=== PATIENT | male | born 1995 | race African-American/Black ===

== ENCOUNTER 2017-02-03 22:27 | Emergency (ER) | payer OTHER ==
[~2017-02-03] VITALS: Ht 190.5 cm; Wt 107.1 kg
[2017-02-04] MEDS ORDERED: MOTRIN600 MG PO (01:07)
[2017-02-04 01:36] VITALS: BP 135/87
== END 2017-02-04 01:38 ==
LOC: EME 22:27
PROC: 0RSJXZZ Reposition Right Shoulder Joint, External Approach (ICD-10-PCS; principal; 2017-02-03)
DX: S43.014A Anterior dislocation of right humerus, initial encounter (principal); W22.8XXA Striking against or struck by other objects, initial encounter; Y92.149 Unspecified place in prison as the place of occurrence of the external cause
CPT/HCPCS: 73030; 99281; 99285; J2250; J2270; J7030

== ENCOUNTER 2017-08-04 17:21 | Emergency (ER) | payer OTHER ==
[~2017-08-04] VITALS: Ht 190.5 cm; Wt 102.3 kg
[~2017-08-04 17:21] MED LIST: MOTRIN600 MG PO
[2017-08-04 20:17] VITALS: BP 141/85
== END 2017-08-04 20:19 ==
LOC: EME 17:21
PROC: 0RSJXZZ Reposition Right Shoulder Joint, External Approach (ICD-10-PCS; principal; 2017-08-04)
DX: S43.014A Anterior dislocation of right humerus, initial encounter (principal); S43.034A Inferior dislocation of right humerus, initial encounter; X58.XXXA Exposure to other specified factors, initial encounter; Y93.67 Activity, basketball
CPT/HCPCS: 73030; 99281; 99285